=== PATIENT | male | born 1995 | race Caucasian/White ===

== ENCOUNTER 2019-09-15 07:31 | Inpatient (IN) ==
[2019-09-15] MEDS ORDERED: ROCEPHIN 1 GM in NS 50 ML IV ONE (07:35)
[2019-09-15] MEDS ORDERED: NS 1,000 ML IV ONE (07:35)
[2019-09-15] MEDS ORDERED: ZITHROMAX 500 MG/NS 500 MG/250 ML IVPB IV ONE (07:35)
[2019-09-15] MEDS ORDERED: DUONEB (A & A) INH ONE (07:36)
--- NOTE | 2019-09-15 07:45 | PROVIDER DOCUMENTATION ---
HPI-Respiratory General - General Stated Complaint: SOB Time Seen by Provider: 09/15/19 07:31 Source: patient, EMS Allergies/Adverse Reactions: Patient Allergies Allergy/AdvReac Type Severity Reaction Status Date / Time venom-wasp Allergy ANAPHYLAXIS Verified 09/15/19 08:25 Home Medications: Home Medication List Medication Instructions Recorded Confirmed Last Taken Type Lamotrigine [Lamictal] 100 mg PO BID 04/21/16 09/15/19 04/21/16 13:00 History Oxcarbazepine [Trileptal] 2.5 tab PO DAILY 04/21/16 09/15/19 04/21/16 13:00 History Topiramate [Topamax] 100 mg PO BID 04/21/16 09/15/19 04/21/16 13:00 History Azithromycin 1 tab PO DAILY 09/15/19 09/15/19 Unknown History Benzonatate 1 cap PO TID 09/15/19 09/15/19 Unknown History Citalopram [Celexa] 20 mg PO DAILY 09/15/19 09/15/19 Unknown History Prednisone 3 tab PO DAILY 09/15/19 09/15/19 Unknown History - History of Present Illness-Resp Nature of Presenting Problem: Patient has had URI symptoms for about a week, diagnosed with PNE at [facility] ER a few days ago, this am stats couldn't breathe. Still has productive cough, this morning, there was pink sputum. First Responders report patient had RA sats 91% at home, so he was placed on 100% NRB. EMS reports they switched him to O2 3L by NC and gave neb treatment en route. Sats improved with neb treatment. C/O right sided sharp chest pain, with deep breath and cough. Quality of Pain: reports: sharp Severity in ED: reports: moderate Onset/Duration: reports: last week Timing: reports: still present, constant, changing over time, getting worse Context: reports: recent URI. denies: recent foreign travel Exposure: reports: illness exposure Cough Quality/Degree: reports: moderate, productive cough, blood streaked sputum Episode Frequency: no prior episodes Current Respiratory Medication Therapy: Initiated none Modifying Factors: improves with: oxygen, sitting upright. worse with: exer tion, coughing, lying down Associated Symptoms: reports: chest pain/soreness, cough, fever/chills, flu-like symptoms, heart racing, hurts to breathe, nasal congestion, shortness of breath , short of breath, sweaty, wheezing Similar Symptoms Previously?: No Recently seen or treated by another doctor?: Yes Review of Systems - Adult - REVIEW OF SYSTEMS - ADULT Constitutional: reports: no symptoms reported Eyes: reports: no symptoms reported Ears, Nose, Mouth & Throat: reports: no symptoms reported Cardiovascular: reports: no symptoms reported Respiratory: reports: no symptoms reported Gastrointestinal: reports: no symptoms reported Genitourinary: reports: no symptoms reported Musculoskeletal: reports: no symptoms reported Integumentary: reports: no symptoms reported Neurological: reports: no symptoms reported Psychiatric: reports: no symptoms reported Endocrine: reports: no symptoms reported Hematologic/Lymphatic: reports: no symptoms reported Allergic/Immunologic: reports: no symptoms reported All Other Systems: Reviewed and Negative Past History - Adult - PAST MEDICAL HISTORY-ADULT Review of Records: reports: Old Records Reviewed, Nursing Assessment Review, Medications Reviewed, Social history reviewed & non-contributory. Major Childhood Illnesses: reports: denies history Cardiovascular: reports: denies history Respiratory: reports: denies history Gastrointestinal: reports: denies history Obstetrical/Gynecological: reports: denies history Genitourinary: reports: denies history Musculoskeletal: reports: denies history Neurological: reports: Seizures/Epilepsy Endocrine/Immune: reports: denies history Other Conditions: reports: denies history - PRIOR SURGERIES/PROCEDURES Surgical/Procedure History: reports: reviewed, not pertinent - IMMUNIZATION STATUS Childhood Immunizations: UTD Flu Vaccine: NUTD - FAMILY HISTORY Family History: reviewed, not pertinent - SOCIAL HISTORY Smoking: cigarettes, greater than 1 pack/day Provider spent 3-5 mins advising pt. on dangers of tobacco.: Discussed manners to quit use, and f/u contacts for add'l counseling. Substance Use: none/never Alcohol Use Frequency: occasionally Living Situation: family Physical Exam-General - PHYSICAL EXAM-ADULT Initial Vital Signs Reviewed: Yes (VSSAF, tachycardic) - CONSTITUTIONAL General Appearance: appears well, alert, no apparent distress - EYES Eyes: PERRL/EOMI, pink conjunctivae - HEAD, EARS, NOSE, MOUTH & THROAT HENMT: normocephalic/atraumatic, moist mucous membranes, normal ENT inspection - NECK Neck: full range of motion, supple, normal inspection - RESPIRATORY Respiratory: chest non-tender, no pleuratic chest pain, no respiratory distress, decreased breath sounds, rhonchi, wheezing, increased rate - CARDIOVASCULAR Cardiovascular: normal peripheral pulses, regular rate, rhythm, no edema, no gallop, no JVD, no murmur, tachycardia - GASTROINTESTINAL (ABDOMEN) Abdominal Exam: non tender, soft, no pulsatile mass - LYMPHATIC Lymphatic: no adenopathy - MUSCULOSKELETAL Back Exam: normal inspection, no CVA tenderness. negative: decreased range of motion Extremity: normal range of motion, non-tender, normal inspection, no pedal edema , normal capillary refill - SKIN Integumentary: normal color, normal turgor, warm/dry - NEUROLOGIC Neurologic: piping design specialist II-XII nml as tested, grossly normal, no motor/sensory deficits - PSYCHIATRIC Psych/Mental Status: normal mood/affect, normal thought content, normal thought process, oriented x 3 Progress - PLAN OF CARE/RESULTS Progress/Plan/Lab Results: Vital Signs - 8 hr 09/15/19 07:38 09/15/19 08:03 09/15/19 08:17 Temperature 98.1 F 97.6 F Pulse Rate 121 H 111 H 109 H Respiratory Rate 27 H 28 H 27 H Blood Pressure 130/91 144/81 O2 Sat by Pulse Oximetry 96 98 98 09/15/19 07:40 Influenza Screen - Final Nasopharyngeal 09/15/19 07:40 Group A Strep Rapid Antigen - Final Throat Laboratory Results - last 24 hr 09/15/19 09/15/19 09/15/19 07:40 07:40 07:40 WBC 17.89 H RBC 4.94 Hgb 14.2 Hct 42.6 MCV 86.2 MCH 28.7 MCHC 33.3 RDW Std Deviation 13.7 Plt Count 425 H MPV 9.8 Immature Gran % (Auto) 1.3 H Neut % (Auto) 74.9 Lymph % (Auto) 14.1 L [place] % (Auto) 9.3 Eos % (Auto) 0.2 Baso % (Auto) 0.2 Immature Gran # (Auto) 0.23 H Neut # (Auto) 13.40 H Lymph # (Auto) 2.53 [place] # (Auto) 1.66 H Eos # (Auto) 0.04 Baso # (Auto) 0.03 PT 13.2 INR 0.99 PTT (Actin FS) 27.8 Specimen Type Sample Site pH pCO2 pO2 HCO3 Base Excess Oxyhemoglobin ABG O2 Sat (Calculated) ABG O2 Saturation ABG Carboxyhemoglobin ABG Methemoglobin Taco Test A-a O2 Difference Total Hemoglobin Lactate Liter Flow Blood Gas Modality FiO2 % Sodium 139 Potassium 3.7 Chloride 99 Carbon Dioxide 21 L Anion Gap 19 BUN 11 Creatinine 1.1 Estimated GFR/1.73 m2 > 60 BUN/Creatinine Ratio 10 Glucose 110 H Calculated Osmolality 278 Calcium 9.0 Magnesium 1.9 Total Bilirubin 0.23 AST 13 ALT 18 Alkaline Phosphatase 65 Creatine Kinase 59 Troponin T High Sens [id number]-Gqwapfvltbl Pept Total Protein 7.3 Albumin 4.5 Globulin 2.8 Albumin/Globulin Ratio 1.6 Urine Source Urine Color Urine Turbidity Urine pH Ur Specific [place] Urine Protein Ur Glucose (Stick) Ur Ketones (Stick) Urine Blood Urine Nitrite Urine Bilirubin Urobilinogen Dipstick Urine Leukocytes Urine WBC (Auto) Urine RBC (Auto) U Epithel Cells (Auto) Urine Bacteria (Auto) 09/15/19 09/15/19 09/15/19 07:40 07:40 08:00 WBC RBC Hgb Hct MCV MCH MCHC RDW Std Deviation Plt Count MPV Immature Gran % (Auto) Neut % (Auto) Lymph % (Auto) [place] % (Auto) Eos % (Auto) Baso % (Auto) Immature Gran # (Auto) Neut # (Auto) Lymph # (Auto) [place] # (Auto) Eos # (Auto) Baso # (Auto) PT INR PTT (Actin FS) Specimen Type ARTERIAL Sample Site R RADIAL pH 7.34 L pCO2 35 pO2 79 HCO3 20.0 Base Excess -6.1 L Oxyhemoglobin 92.3 L ABG O2 Sat (Calculated) 18.2 ABG O2 Saturation 97.4 ABG Carboxyhemoglobin 5.20 H* ABG Methemoglobin 0.1 Taco Test YES A-a O2 Difference 77.0 Total Hemoglobin 14.0 Lactate 1.70 Liter Flow 2.0 Blood Gas Modality CANNULA FiO2 % 28.0 Sodium Potassium Chloride Carbon Dioxide Anion Gap BUN Creatinine Estimated GFR/1.73 m2 BUN/Creatinine Ratio Glucose Calculated Osmolality Calcium Magnesium Total Bilirubin AST ALT Alkaline Phosphatase Creatine Kinase Troponin T High Sens < 6 [id number]-Y-Jrlvjmnnwha Pept 104 H Total Protein Albumin Globulin Albumin/Globulin Ratio Urine Source Urine Color Urine Turbidity Urine pH Ur Specific [place] Urine Protein Ur Glucose (Stick) Ur Ketones (Stick) Urine Blood Urine Nitrite Urine Bilirubin Urobilinogen Dipstick Urine Leukocytes Urine WBC (Auto) Urine RBC (Auto) U Epithel Cells (Auto) Urine Bacteria (Auto) 09/15/19 09:04 WBC RBC Hgb Hct MCV MCH MCHC RDW Std Deviation Plt Count MPV Immature Gran % (Auto) Neut % (Auto) Lymph % (Auto) [place] % (Auto) Eos % (Auto) Baso % (Auto) Immature Gran # (Auto) Neut # (Auto) Lymph # (Auto) [place] # (Auto) Eos # (Auto) Baso # (Auto) PT INR PTT (Actin FS) Specimen Type Sample Site pH pCO2 pO2 HCO3 Base Excess Oxyhemoglobin ABG O2 Sat (Calculated) ABG O2 Saturation ABG Carboxyhemoglobin ABG Methemoglobin [place]aco Test A-a O2 Difference Total Hemoglobin Lactate Liter Flow Blood Gas Modality FiO2 % Sodium Potassium Chloride Carbon Dioxide Anion Gap BUN Creatinine Estimated GFR/1.73 m2 BUN/Creatinine Ratio Glucose Calculated Osmolality Calcium Magnesium Total Bilirubin AST ALT Alkaline Phosphatase Creatine Kinase Troponin T High Sens Ftp-U-Wljhurbcebv Pept Total Protein Albumin Globulin Albumin/Globulin Ratio Urine Source CLEAN CATCH Urine Color YELLOW Urine Turbidity CLEAR Urine pH 5.5 Ur Specific [place] 1.011 Urine Protein TRACE A Ur Glucose (Stick) NEGATIVE Ur Ketones (Stick) NEGATIVE Urine Blood NEGATIVE Urine Nitrite NEGATIVE Urine Bilirubin NEGATIVE Urobilinogen Dipstick NORMAL Urine Leukocytes NEGATIVE Urine WBC (Auto) <10 Urine RBC (Auto) <10 U Epithel Cells (Auto) <10 Urine Bacteria (Auto) NEGATIVE Orders Category Date Time Status Cardiac Monitoring DIRECTED Care 09/15/19 07:34 Active IV Insertion ORDERED Care 09/15/19 07:34 Completed Nursing- Obtain EKG once Care 09/15/19 07:35 Active CHEST-2 VIEWS [RAD] Stat Exams 09/15/19 07:34 Completed ABG [RESP] Routine Lab 09/15/19 08:00 Completed BLOOD CULTURE [BLDCUL] Stat Lab 09/15/19 07:40 Received CBC WITH DIFF [HEME] Stat Lab 09/15/19 07:40 Completed CK PROFILE [SP CHEM] Stat Lab 09/15/19 07:40 Completed COMPREHENSIVE METABOLIC PANEL [CHEM] Stat Lab 09/15/19 07:40 Completed D-DIMER [COAG] Stat Lab 09/15/19 07:35 Ordered DIRECT STREP Stat Lab 09/15/19 07:40 Completed INFLUENZA SCREEN A/B Stat Lab 09/15/19 07:40 Completed LACTATE, PLASMA [CHEM] Lab 09/15/19 10:45 Uncollected LACTATE, PLASMA [CHEM] Lab 09/15/19 13:45 Uncollected LACTATE, PLASMA [CHEM] Q3H Lab 09/15/19 07:40 Ordered MAGNESIUM [CHEM] Stat Lab 09/15/19 07:40 Completed PRO B-NATRIURETIC PEPTIDE Stat Lab 09/15/19 07:40 Completed PROTIME WITH INR [COAG] Stat Lab 09/15/19 07:40 Completed PTT [COAG] Stat Lab 09/15/19 07:40 Completed SPUTUM CULTURE WITH GRAM STAIN [RM] Stat Lab 09/15/19 07:34 Uncollected TROPONIN T HIGH SENSITIVITY Stat Lab 09/15/19 07:40 Completed URINALYSIS W/POSS RFLX CULT [URINALYSIS] Stat Lab 09/15/19 09:04 Completed 0.9% Sodium Chloride Inj [Ns] 1,000 ml Med 09/15/19 07:35 Discontinued IV 999 mls/hr Albuterol 2.5MG/Ipratrop 0.5MG [Duoneb (A & A)] Med 09/15/19 07:36 Discontinued 3 ml INH NOW ONE Azithromycin 500 mg/Ns [Zithromax 500 mg/Ns] Med 09/15/19 07:35 Discontinued 500 mg in 250 ml IV NOW CefTRIAXONE [Rocephin] 1 gm Med 09/15/19 07:35 Discontinued 0.9% Sodium Chloride Inj [Ns] 50 ml IV NOW Aerosol Treatments Routine Oth 09/15/19 07:36 Completed Aerosol Treatments Stat Oth 09/15/19 07:36 Completed Oxygen Device Stat Oth 09/15/19 07:34 Completed EKG [EKG] Stat Ther 09/15/19 07:35 Ordered Result Diagrams: 09/15/19 07:40 09/15/19 07:40 - REASSESSMENT Reassessment #1 Time Reassessed: 10:00 Status: improving (Better after IVF bolus, duoneb, given IV Rocephin/zithromax, and he has failed outpatient abx treatment with z-pack. Patient meets criteria for sepsis, but is not with severe sepsis or septic shock as lactat is negative and there is no hypotension) - EKG 1 Time of EKG reading by physician:: 07:43 EKG Read and Signed by:: Montez Coleman EKG Interpretation (*Must complete 3 of following elements*): Abnormal Rate: 122 Rhythm: sinus tachycardia Mcclellan: normal QRS: LVH, other (RSR V1 or V2, early transition, high voltage) ME Interval: normal ST Wave: non-specific ST changes - XRAY 1 XRAY Study: Chest Impression: Abnormal, See EMR Report ( EXAM: CHEST-2 VIEWS HISTORY: pneumonia TECHNIQUE: Two views COMPARISON: 04/21/2016 FINDINGS: Poor inspiratory effort. There are infiltrates and atelectasis in the right lower lobe. No cardiomegaly. No pulmonary edema. No left pleural effusion. Trace right pleural fluid. IMPRESSION: Right lower lobe infiltrates and atelectasis Electronically signed by Chadd Tovar 09/15/2019 9:06 AM 09/15/19905 Interpreting Physician: Chadd Tovar MD Dictated Date/Time: 09/15/19905 cc: Montez Coleman MD; None,PCP) - CONSULTS/PCP/HOSPITALIST Notification #1 *Consult/PCP/Hospitalist*: Hospitalist RICHARD paged at 1000 Time Discussed: 10:13 (RICHARD Portillo states to admit to [facility]) Consult Disposition: Will see in ED, Admit Departure - Departure Date of Disposition Decision: 09/15/19 Time of Disposition Decision: 10:03 DIAGNOSIS: Sepsis due to pneumonia, Failure of outpatient treatment Right lower lobe pneumonia Qualifiers: Pneumonia type: due to unspecified organism Qualified Code(s): J18.1 - Lobar pneumonia, unspecified organism Disposition: ADMITTED INPATIENT 09 Certified Medical Emergency: Emergent Condition: Fair Referrals and Follow-Ups: None,PCP [Primary Care Provider] - - Critical Care Note This patient required my direct & personal management of CC.: No Attestation - Physician/ PEDRO LUIS Attestation Patient care was provided by Advanced Practice Provider:: No The physician spent face to face time with patient:: Yes Advanced Practice Provider documentation review:: Supervising physician onsite and consulted in the evaluation and care of this patient. The physician did have a face to face encounter with the patient.
[2019-09-15 08:11] LABS: ALLEN TEST YES; BE -6.1 mmoll (-3.0-3.0); BLOOD TYPE ARTERIAL; METHB 0.1 % (0.0-1.5); O2(CT) 18.2 mL/dL (15.0-23.0); O2HB 92.3 % (95.0-99.0); PCO2(98.6) 35 mmHg (35-45); PO2(98.6) 79 mmHg (60-100); SAMPLE BLOOD; SAO2 97.4 % (95.0-100.0); pH(98.6) 7.34 (7.35-7.45)
[2019-09-15 08:12] LABS: MODALITY CANNULA
--- NOTE | 2019-09-15 09:09 | Diag Imaging Result Doc PS360 ---
EXAM: CHEST-2 VIEWS HISTORY: pneumonia TECHNIQUE: Two views COMPARISON: 04/21/2016 FINDINGS: Poor inspiratory effort. There are infiltrates and atelectasis in the right lower lobe. No cardiomegaly. No pulmonary edema. No left pleural effusion. Trace right pleural fluid. IMPRESSION: Right lower lobe infiltrates and atelectasis Electronically signed by Chadd Tovar 09/15/2019 9:06 AM
[2019-09-15 09:12] LABS: URINE SOURCE CLEAN CATCH
[2019-09-15 09:16] LABS: BILIRUBIN URINE NEGATIVE (NEGATIVE); BLOOD URINE NEGATIVE (NEGATIVE); COLOR YELLOW; GLUCOSE URINE NEGATIVE (NEGATIVE); KETONE URINE NEGATIVE (NEGATIVE); LEUKOCYTES URINE NEGATIVE (NEGATIVE); NITRITE URINE NEGATIVE (NEGATIVE); PH URINE 5.5; PROTEIN URINE TRACE mg/dL (NEGATIVE); SP GRAVITY URINE 1.011; TURBIDITY URINE CLEAR (CLEAR); UROBILINOGEN URINE NORMAL (NORMAL)
[2019-09-15 09:17] LABS: UR EPITHELIAL CELLS <10 /HPF (<10); URINE BACTERIA NEGATIVE /HPF; URINE RBC <10 /HPF (<10); URINE WBC <10 /HPF (<10)
[2019-09-15 09:40] LABS: BASO# 0.03 X1000 (0.0-0.2); BASO% 0.2 % (0.0-0.8); EOS# 0.04 X1000 (0.0-0.7); EOS% 0.2 % (0.0-10.0); HEMATOCRIT 42.6 % (42.0-52.0); HEMOGLOBIN 14.2 g/dL (14.0-18.0); IMM GRAN# 0.23 X1000 (0.0-0.04); IMM GRAN% 1.3 % (0.0-0.5); LYMPH# 2.53 X1000 (1.2-3.4); LYMPH% 14.1 % (20.5-51.1); MCH 28.7 PG (27-31); MCHC 33.3 g/dL (33-37); MCV 86.2 FL (81-99); MONO# 1.66 X1000 (0.11-0.59); MONO% 9.3 % (1.7-9.3); MPV 9.8 FL (7.4-10.4); NEUT% 74.9 % (42.2-75.2); PLT 425 X1000 (130-400); RBC 4.94 XMIL (4.7-6.1); RDW 13.7 % (11.5-14.5); WBC 17.89 X1000 (4.8-10.8)
[2019-09-15 09:49] LABS: INR 0.99; PROTIME 13.2 Seconds (11.0-16.0); PTT 27.8 Seconds (22.3-41.8)
[2019-09-15 09:59] LABS: AGAP 19; ALB/GLOB RATIO 1.6; ALBUMIN 4.5 g/dL (3.5-5.0); ALKALINE PHOSPHATASE 65 U/L (32-122); BUN 11 mg/dL (8-22); CHLORIDE 99 mmol/L (98-107); CK PROFILE 59 U/L (24-204); COSMO 278; CREATININE 1.1 mg/dL (0.7-1.2); ESTIMATED GFR > 60; GLUCOSE 110 mg/dL (70-104); GOT 13 U/L (10-34); GPT 18 U/L (10-44); MAGNESIUM 1.9 mg/dL (1.5-2.7); POTASSIUM 3.7 mmol/L (3.5-5.1); SODIUM 139 mmol/L (136-145); TCO2 21 mmol/L (25-35); TOTAL BILIRUBIN 0.23 mg/dL (0.20-1.00); TOTAL PROTEIN 7.3 g/dL (6.3-8.3)
[2019-09-15] MEDS ORDERED: ZOFRAN IV PRN (10:20)
[2019-09-15] MEDS: DUONEB (A & A) INH SCH ×4 (10:51→23:09)
--- NOTE | 2019-09-15 11:32 | HISTORY AND PHYSICAL ---
PRIMARY CARE PHYSICIAN: None. CHIEF COMPLAINT: Fever, chills, body aches, shortness of breath, productive cough after being diagnosed with the pneumonia about 5 days ago, and has continued antibiotics, but no improvement in symptoms. HISTORY OF PRESENTING ILLNESS: This is a 24-year-old male, who presents to [facility] stating that he was diagnosed with pneumonia about 5 days ago at [facility], placed on p.o. antibiotics. Has been taking those antibiotics as prescribed, but continued to have fever, chills, body aches, shortness of breath, productive cough. When EMS arrived, he was satting 91% on room air. They placed him on O2 at 2 L via nasal cannula and gave him a breathing treatment en route. When he arrived, he was satting 96% on room air. His pulse was 121 respirations 27. His white count was noted to be 17.89, but it is noted that he has been taking some prednisone also, and his chest x-ray showed a right lower lobe infiltrate and atelectasis. So, he will be admitted for further evaluation and treatment for failed outpatient treatment. PAST MEDICAL HISTORY: Depression and seizures. PAST SURGICAL HISTORY: None. FAMILY HISTORY: Reviewed and noncontributory. SOCIAL HISTORY: Currently lives with . Smokes a half a pack of cigarettes a day and has done so for the past 10+ years. Drinks 12 beers a week and denied any illicit drug use. ALLERGIES: Venom and wasps. HOME MEDICATIONS: We will hold his azithromycin 250 mg p.o. daily. We will continue the following: Benzonatate 100 mg p.o. t.i.d., Celexa 20 mg p.o. daily, lamotrigine 100 mg p.o. b.i.d., oxcarbazepine 150 mg 2-1/2 tablets p.o. daily, prednisone 20 mg three tablets daily and topiramate 100 mg p.o. b.i.d. LABORATORY DATA: Showed a white blood cell count of 17.89, hemoglobin 14.2, hematocrit 42.6, platelets 425. PT and INR of 13.2 and 0.99. ABG with a pH of 7.34, pCO2 35, PO2 79, bicarbonate 20 and this was on 2 L via nasal cannula. Sodium 139, potassium 3.7, chloride 99, CO2 21. BUN of 11, creatinine 1.1, glucose 110, magnesium of 1.9, creatine kinase 59. Troponin T high sensitivity less than 6. ProBNP of 104. Urinalysis was negative. IMAGING STUDIES: Chest x-ray showed a right lower lobe infiltrate and atelectasis. REVIEW OF SYSTEMS: He has been positive for fever, chills, body aches, productive cough, shortness of breath. Denied any abdominal pain, constipation, diarrhea, burning or hurting with urination. PHYSICAL EXAMINATION: VITAL SIGNS: On arrival he had a temperature of 98.1 degrees, pulse 121, respirations 27, blood pressure 130/91, satting 96% on room air. GENERAL: This is a 24-year-old male, who is lying in the bed and answers questions appropriately. HENT: Normocephalic, atraumatic. Normal ENT inspection. Oropharynx and nares are clear. EYES: Pupils are equal, round, reactive to light and accommodation. Extraocular movements are intact. NECK: Normal inspection, normal range of motion. LUNGS: Clear on the left side, and on the right side was decreased breath sounds. When he arrived, he did have some rhonchi and wheezing noted, but none noted at this time. Equal lung expansion. Chest wall movement noted. O2 via nasal cannula currently in use. HEART: Regular rate and rhythm. No murmurs, rubs, or gallops. ABDOMEN: Soft, nontender, nondistended. Bowel sounds are present x4 quadrants. MUSCULOSKELETAL: He had 5/5 strength x4 extremities. NEUROLOGICAL: The cranial nerves 2-12 appear grossly intact. ASSESSMENT: 1. Sepsis. 2. Right lower lobe pneumonia with failed outpatient treatment. 3. Leukocytosis. 4. Tobacco abuse. 5. Ethanol abuse. PLAN: He will be admitted to the medical unit, placed on telemetry. O2 per protocol. Regular diet. Incentive spirometry. We will do serial lactates. Place on normal saline at 50 mL an hour, Rocephin 1 gram IV q. 24 hours, azithromycin 500 IV q. 24 hours; both first doses of those were given in the emergency room. He will have a nicotine patch 21 mg transdermally. We will continue home medications as previously identified. Further orders after seen by attending. Dictated by RICHARD Bennett for Kyree Stuart MD Addendum: Patient seen and examined by myself. Agree with RICHARD note. It reflects my assessment and plan. Patient is admitted to hospital for pneumonia that failed outpatient treatment. Will start broad spectrum antibiotics and will go from there. cc: RICHARD Bennett MD [facility]
[2019-09-15] MEDS: NS 1,000 ML IV SCH (13:46)
[2019-09-15] MEDS: TESSALON PO SCH ×3 (13:48→22:32)
[2019-09-15] MEDS: NICODERM PATCH TD SCH (13:48)
--- NOTE | 2019-09-15 19:13 | EKG Report ---
Test Performed on : 09/15/2019 07:42:23 AM Test Reason : sob Blood Pressure : / mmHG Vent. Rate : 122 BPM Atrial Rate : 122 BPM P-R Int : 144 ms QRS Dur : 084 ms QT Int : 300 ms P-R-T Axes : 052 058 -24 degrees QTc Int : 427 ms Sinus tachycardia. Possible Left atrial enlargement ST & T wave abnormality, consider inferior ischemia ST & T wave abnormality, consider anterolateral ischemia Abnormal ECG No previous ECGs available Unconfirmed Result
[2019-09-15] MEDS: TOPAMAX PO SCH ×2 (19:45→22:32)
[2019-09-15] MEDS: LAMICTAL PO SCH ×2 (19:45→22:32)
[2019-09-16] MEDS: DUONEB (A & A) INH SCH ×6 (03:26→23:08)
[2019-09-16] MEDS ORDERED: ROCEPHIN 1 GM in NS 50 ML IV SCH (08:00)
[2019-09-16 08:22] LABS: AGAP 12; BUN 9 mg/dL (8-22); CALCIUM 9.1 mg/dL (8.8-10.2); CHLORIDE 94 mmol/L (98-107); COSMO 264; CREATININE 1.1 mg/dL (0.7-1.2); ESTIMATED GFR > 60; GLUCOSE 111 mg/dL (70-104); POTASSIUM 4.8 mmol/L (3.5-5.1); SODIUM 132 mmol/L (136-145); TCO2 26 mmol/L (25-35)
[2019-09-16 08:28] LABS: BASO# 0.04 X1000 (0.0-0.2); BASO% 0.2 % (0.0-0.8); EOS# 0.18 X1000 (0.0-0.7); EOS% 0.8 % (0.0-10.0); HEMATOCRIT 41.8 % (42.0-52.0); HEMOGLOBIN 13.9 g/dL (14.0-18.0); IMM GRAN% 0.9 % (0.0-0.5); LYMPH# 2.19 X1000 (1.2-3.4); MCH 29.1 PG (27-31); MCHC 33.3 g/dL (33-37); MCV 87.4 FL (81-99); MONO% 14.6 % (1.7-9.3); MPV 9.5 FL (7.4-10.4); NEUT% 73.5 % (42.2-75.2); PLT 381 X1000 (130-400); RBC 4.78 XMIL (4.7-6.1); RDW 13.7 % (11.5-14.5); WBC 21.91 X1000 (4.8-10.8)
[2019-09-16 09:22] LABS: LYMPHS 10 % (21-51); MONO 12 % (1-9); SEGS 78 % (42-75)
[2019-09-16] MEDS ORDERED: VANCOMYCIN IV PER PHARMACY MISC SCH (09:30)
[2019-09-16] MEDS ORDERED: ZOSYN 3.375 GM in NS 50 ML IV SCH (09:30)
[2019-09-16] MEDS: VANCOMYCIN 2,000 MG in NS 500 ML IV SCH ×3 (10:05→22:50)
[2019-09-16] MEDS: NS 1,000 ML IV SCH (10:05)
[2019-09-16] MEDS: TRILEPTAL PO SCH (10:06)
[2019-09-16] MEDS: TESSALON PO SCH ×3 (10:11→17:14)
[2019-09-16] MEDS: PREDNISONE PO SCH (10:11)
[2019-09-16] MEDS: NICODERM PATCH TD SCH (10:12)
[2019-09-16] MEDS: CELEXA PO SCH (10:12)
[2019-09-16] MEDS: TOPAMAX PO SCH ×2 (10:12→20:24)
[2019-09-16] MEDS: LAMICTAL PO SCH ×2 (10:12→20:24)
[2019-09-16] MEDS ORDERED: ZITHROMAX 500 MG/NS 500 MG/250 ML IVPB IV SCH (10:30)
--- NOTE | 2019-09-16 10:43 | PROGRESS NOTE ---
DATE: 09/16/2019 SUBJECTIVE: The patient reports feeling the same, although more body aches. OBJECTIVE: Vital Signs: Temperature 99 degrees, heart rate 121, respiratory rate 16, blood pressure 129/79, O2 saturation 95% on 2 L nasal cannula. General: This is a 24-year-old, male, lying in bed in no acute distress. Cardiovascular: S1, S2 heard. No murmurs, gallops, or rubs. Regular rate and rhythm. Respiratory: Coarse breath sounds. Minimal wheezing noted in both pulmonary bases. The patient is not using any accessory muscles or having work of breathing. Abdomen: Soft. Nontender to palpation. Bowel sounds present. No organomegaly. Extremities: No clubbing, cyanosis, or edema. Peripheral pulses present in both legs. Neurological: The patient is alert and oriented x3. Moves all 4 extremities. LABORATORY DATA: White cell count 21.91, hemoglobin 13.9, hematocrit 41.8, platelets 381,000. BMP reveals sodium 132. ASSESSMENT AND PLAN: 1. Acute respiratory failure secondary to right lower lobe pneumonia. The patient has failed outpatient treatment. He has been placed on vancomycin and azithromycin. Unfortunately, white cell count continues to get worse, and he is still feeling general malaise. In this case, I am going to do a CT scan of the thorax to see there is any worsening pneumonia, and we are going to change antibiotics to broad-spectrum antibiotics, in this case vancomycin and Zosyn. Will stop ceftriaxone and azithromycin. 2. Tobacco abuse. Patient advised to stop smoking. 3. Ethanol abuse. Patient advised to avoid alcohol. cc: Kyree Sturat MD
[2019-09-16] MEDS ORDERED: SOLU-MEDROL IV ONE (11:12)
[2019-09-16] MEDS: BENADRYL IV PRN (11:44)
[2019-09-16] MEDS: MAXIPIME 1 GM in NS 50 ML IV SCH (11:45)
[2019-09-16] MEDS: MORPHINE IV PRN ×2 (12:29→17:12)
--- NOTE | 2019-09-16 17:23 | EKG Report ---
Test Performed on : 09/16/2019 12:12:36 PM Test Reason : chest pain, SOB Blood Pressure : / mmHG Vent. Rate : 128 BPM Atrial Rate : 128 BPM P-R Int : 114 ms QRS Dur : 076 ms QT Int : 298 ms P-R-T Axes : 043 040 041 degrees QTc Int : 435 ms Sinus tachycardia. T wave abnormality, consider lateral ischemia Abnormal ECG When compared with ECG of 15-SEP-2019 07:42, (Unconfirmed) Nonspecific T wave abnormality has replaced inverted T waves in Inferior leads Confirmed by Mariann Goldstein MD ([id number]) on 09/18/2019 7:40:02 AM
[2019-09-17] MEDS: MORPHINE IV PRN ×4 (02:36→20:37)
[2019-09-17] MEDS: DUONEB (A & A) INH SCH ×6 (03:39→22:55)
[2019-09-17] MEDS: NS 1,000 ML IV SCH (05:14)
[2019-09-17] MEDS: MAXIPIME 1 GM in NS 50 ML IV SCH ×2 (05:15→18:18)
--- NOTE | 2019-09-17 08:58 | Diag Imaging Result Doc PS360 ---
EXAM: CT THORAX W/CONTRAST INDICATION: worsening pneumonia TECHNIQUE: This exam was performed using automated exposure control, adjustment of mA or kV according to patient size, and/or use of iterative reconstruction technique. COMPARISON: None. FINDINGS: There is a moderate to large size right pleural fluid collection that appears to be partially loculated. There is complete collapse of the right lower lobe and there is milder atelectasis involving the right middle lobe and dependent portion of the right upper lobe. There is probably superimposed pneumonia associated with the atelectasis. There is peribronchial edema associated with the collapsed right lower lobe. There is trace effusion at the left lung base and there is minimal dependent atelectasis on the left. The left lung is clear, otherwise. There is no cardiomegaly. There is no evidence of significant mediastinal or hilar lymphadenopathy. Limited views of the upper abdomen are essentially unremarkable. IMPRESSION: 1.Partially loculated moderate to large sized right pleural effusion with significant atelectasis including complete collapse of the right lower lobe and likely superimposed pneumonia. 2.Trace left effusion and minimal dependent atelectasis on the left. Electronically signed by Jaden Sam 09/17/2019 8:56 AM
[2019-09-17] MEDS: TESSALON PO SCH ×3 (09:13→18:18)
[2019-09-17] MEDS: NICODERM PATCH TD SCH (09:13)
[2019-09-17] MEDS: PREDNISONE PO SCH (09:14)
[2019-09-17] MEDS: LAMICTAL PO SCH ×2 (09:14→20:37)
[2019-09-17] MEDS: TOPAMAX PO SCH ×2 (09:14→20:37)
[2019-09-17] MEDS: CELEXA PO SCH (09:14)
[2019-09-17] MEDS: TRILEPTAL PO SCH (09:14)
[2019-09-17] MEDS: VANCOMYCIN 2,000 MG in NS 500 ML IV SCH ×2 (09:23→22:30)
[2019-09-17 10:52] LABS: BASO# 0.02 X1000 (0.0-0.2); BASO% 0.1 % (0.0-0.8); EOS# 0.11 X1000 (0.0-0.7); EOS% 0.6 % (0.0-10.0); HEMATOCRIT 40.8 % (42.0-52.0); HEMOGLOBIN 13.4 g/dL (14.0-18.0); IMM GRAN# 0.11 X1000 (0.0-0.04); IMM GRAN% 0.6 % (0.0-0.5); LYMPH# 1.74 X1000 (1.2-3.4); LYMPH% 8.9 % (20.5-51.1); MCH 28.7 PG (27-31); MCHC 32.8 g/dL (33-37); MCV 87.4 FL (81-99); MONO# 2.24 X1000 (0.11-0.59); MONO% 11.4 % (1.7-9.3); MPV 9.5 FL (7.4-10.4); NEUT# 15.43 X1000 (1.4-6.5); NEUT% 78.4 % (42.2-75.2); PLT 333 X1000 (130-400); RBC 4.67 XMIL (4.7-6.1); RDW 13.4 % (11.5-14.5); WBC 19.65 X1000 (4.8-10.8)
--- NOTE | 2019-09-17 12:19 | PROGRESS NOTE ---
DATE: 09/17/2019 SUBJECTIVE: Patient reports feeling a little bit better. Yesterday afternoon, he was complaining of more diaphoreses and general malaise and chills. OBJECTIVE: Vital Signs: Temperature 98.0 degrees, heart rate 97, respiratory rate 14, blood pressure 131/76, O2 saturation 98% on 3 L nasal cannula. General Examination: This is a 24-year- old, male, lying in bed, in no acute distress. Cardiovascular Examination: S1 and S2 heard. No murmurs, gallops, or rubs. Regular rate and rhythm. Respiratory Examination: Decreased breath sounds in the right base. Patient is not using any accessory muscles or having work of breathing. Abdomen: Soft, nontender to palpation. Bowel sounds present. No organomegaly. Extremities: No clubbing, cyanosis, or edema. Peripheral pulses present in both legs. Neurological Examination: The patient is alert and oriented x3. Moves 4 extremities. Laboratory Data: White cell count 19.65, hemoglobin 13.4, hematocrit 40.0, platelets are 333,000. BMP is still pending. ASSESSMENT AND PLAN: 1. Acute respiratory failure secondary to right lower lobe pneumonia. Because this patient's white cell count continues to get worse and also worsening clinical status, I decided to order a CT of the chest which basically showed partially loculated moderate to large size right pleural effusion with significant atelectasis including complete collapse of the right lower lobe and likely superimposed pneumonia. In that particular case, we are going to consult pulmonary and we will go from there. We may need to place a chest tube or we can try to do a thoracentesis. We will see what Dr. Kyle has to say. The patient currently is on vancomycin on Zosyn. We will continue with the same management. 2. Tobacco abuse. Patient advised to stop smoking. He smokes half a pack of cigarettes per day since 10 years. He has been advised to quit. 3. Ethanol abuse. Aware. 4. Disposition. We will see what pulmonary has to say. cc: Kyree Stuart MD
[2019-09-17 12:20] LABS: AGAP 16; BUN 12 mg/dL (8-22); CALCIUM 9.2 mg/dL (8.8-10.2); CHLORIDE 98 mmol/L (98-107); COSMO 266; CREATININE 0.9 mg/dL (0.7-1.2); ESTIMATED GFR > 60; GLUCOSE 90 mg/dL (70-104); POTASSIUM 3.8 mmol/L (3.5-5.1); SODIUM 133 mmol/L (136-145); TCO2 19 mmol/L (25-35)
[2019-09-17 13:25] LABS: BASO# 0.02 X1000 (0.0-0.2); BASO% 0.1 % (0.0-0.8); EOS# 0.06 X1000 (0.0-0.7); EOS% 0.3 % (0.0-10.0); HEMATOCRIT 41.1 % (42.0-52.0); HEMOGLOBIN 13.4 g/dL (14.0-18.0); IMM GRAN# 0.12 X1000 (0.0-0.04); IMM GRAN% 0.6 % (0.0-0.5); LYMPH# 0.77 X1000 (1.2-3.4); LYMPH% 3.8 % (20.5-51.1); MCH 28.5 PG (27-31); MCHC 32.6 g/dL (33-37); MCV 87.3 FL (81-99); MONO# 1.06 X1000 (0.11-0.59); MONO% 5.2 % (1.7-9.3); MPV 9.5 FL (7.4-10.4); NEUT# 18.46 X1000 (1.4-6.5); PLT 358 X1000 (130-400); RBC 4.71 XMIL (4.7-6.1); RDW 13.4 % (11.5-14.5); WBC 20.49 X1000 (4.8-10.8)
[2019-09-17 13:33] LABS: AGAP 14; BUN 13 mg/dL (8-22); CALCIUM 9.2 mg/dL (8.8-10.2); CHLORIDE 97 mmol/L (98-107); COSMO 265; ESTIMATED GFR > 60; GLUCOSE 111 mg/dL (70-104); POTASSIUM 3.7 mmol/L (3.5-5.1); SODIUM 132 mmol/L (136-145); TCO2 21 mmol/L (25-35)
[2019-09-17 14:00] LABS: BANDS 4 % (0-1); LYMPHS 10 % (21-51); SEGS 86 % (42-75)
[2019-09-17] MEDS: BENADRYL IV PRN (22:35)
[2019-09-18] MEDS: DUONEB (A & A) INH SCH ×6 (05:32→23:25)
[2019-09-18] MEDS: MAXIPIME 1 GM in NS 50 ML IV SCH ×2 (05:48→18:31)
[2019-09-18] MEDS: NS 1,000 ML IV SCH (05:49)
--- NOTE | 2019-09-18 07:23 | PULMONOLOGY CONSULTATION ---
DATE: 09/17/2019 REQUESTING CLINICIAN: Dr. Jacinto. REASON FOR CONSULTATION: Pleural effusion. HISTORY OF PRESENT ILLNESS: Mr. Javed is a 24-year-old with ongoing tobacco use, daily alcohol use, history of seizure disorder, who had a several-day history of cough with purulent sputum production, possible fevers with nocturnal sweats. The patient went to [facility] Emergency Room and received a Z-Radames and prednisone. The patient's symptoms did not improve, so EMS was called. The patient had an oxygen saturation of 91% upon their arrival. He had significant sharp chest pain with blood-streaked sputum. He had significant leukocytosis upon presentation. Influenza screen was negative, and blood cultures are negative to date. Initial chest x-ray revealed infiltrate and atelectasis at the right base with trace effusion. Two days later he underwent a CT scan of the thorax, which reveals a moderate to large effusion, which appears to be loculated, along with consolidation in the right lower lobe and right middle lobe. No evidence of pulmonary emboli. PAST MEDICAL HISTORY/PROBLEM LIST: 1. Seizure disorder. The patient reports he will have seizures and will be poorly responsive for up to 24 to 48 hours. He is followed by a neurologist at [place]. 2. History of depression. SOCIAL HISTORY: The patient is disabled due to his seizure disorder. Frequent alcohol use. He has been smoking for many years. FAMILY HISTORY: Mother has no significant medical problems. His father is in fpc, and he is not sure of his medical history, but he did have difficulty with drug use. REVIEW OF SYSTEMS: Notable for cough, purulent sputum production, and bloody sputum production. Fevers, and nocturnal sweats. PHYSICAL EXAMINATION: General: Reveals a well-developed, well-nourished male resting comfortably and in no distress. Vital Signs: He has been afebrile during this hospitalization. Blood pressure 135/71, heart rate 91, respiratory rate 18, oxygen saturation 99% on 4 liters per nasal cannula. HEENT: Pupils are equal and reactive. Oropharynx appears clear. Neck: Supple. Chest: Reveals markedly diminished breath sounds on the right mid to the right base lung brown. Cardiac: S1-S2. Abdomen: Soft. Extremities: Without edema. LABORATORIES: White blood count 20,000, hemoglobin 13.4, platelet count 358,000 with a left shift and 4% bands. IMPRESSION: A 24-year-old with: 1. Pneumonia. 2. Loculated pleural effusion. 3. Hypoxemic respiratory failure. 4. Pleuritic chest pain. 5. Tobacco use/nicotine addiction. 6. Alcohol use. 7. Seizure disorder. DISCUSSION: A 24-year-old with problems outlined above. With his history, he had a pneumonia for several days before he had his initial evaluation. He is at risk for both community-acquired pneumonias, along anaerobic and aspiration pneumonias given his alcohol use and seizure disorder. He will need the pleural fluid sample to ensure that he does not have empyema. If he has empyema, he may require a thoracoscopy or a thoracotomy to adequately drain this right hemithorax. PLAN: 1. Continue current antibiotic regimen pending sampling of the right pleural fluid. 2. Schedule thoracentesis first thing in the morning. Orders have been placed. 3. Continue incentive spirometry. 4. Wean steroids. 5. Counseled about the need to discontinue tobacco use. 6. Counseled about the importance of smoking cessation in a patient with a seizure disorder. cc: Gopi Kyle MD
[2019-09-18 08:34] LABS: INR 0.91; PROTIME 12.4 Seconds (11.0-16.0)
[2019-09-18 08:48] LABS: BASO# 0.01 X1000 (0.0-0.2); BASO% 0.1 % (0.0-0.8); EOS# 0.13 X1000 (0.0-0.7); EOS% 0.9 % (0.0-10.0); HEMATOCRIT 37.6 % (42.0-52.0); HEMOGLOBIN 12.5 g/dL (14.0-18.0); IMM GRAN# 0.11 X1000 (0.0-0.04); IMM GRAN% 0.8 % (0.0-0.5); LYMPH# 1.77 X1000 (1.2-3.4); LYMPH% 12.4 % (20.5-51.1); MCHC 33.2 g/dL (33-37); MCV 87.2 FL (81-99); MONO# 1.59 X1000 (0.11-0.59); MONO% 11.2 % (1.7-9.3); MPV 9.8 FL (7.4-10.4); NEUT# 10.63 X1000 (1.4-6.5); NEUT% 74.6 % (42.2-75.2); PLT 371 X1000 (130-400); RBC 4.31 XMIL (4.7-6.1); RDW 13.3 % (11.5-14.5); WBC 14.24 X1000 (4.8-10.8)
[2019-09-18 09:23] LABS: AGAP 15; BUN 13 mg/dL (8-22); CALCIUM 9.4 mg/dL (8.8-10.2); CHLORIDE 103 mmol/L (98-107); COSMO 281; CREATININE 0.9 mg/dL (0.7-1.2); ESTIMATED GFR > 60; GLUCOSE 91 mg/dL (70-104); POTASSIUM 4.3 mmol/L (3.5-5.1); SODIUM 141 mmol/L (136-145); TCO2 23 mmol/L (25-35)
[2019-09-18] MEDS: NICODERM PATCH TD SCH (10:02)
[2019-09-18] MEDS: VANCOMYCIN 2,000 MG in NS 500 ML IV SCH ×2 (10:02→21:17)
[2019-09-18] MEDS: TESSALON PO SCH ×3 (10:03→21:18)
[2019-09-18] MEDS: TRILEPTAL PO SCH (10:03)
[2019-09-18] MEDS: LAMICTAL PO SCH ×2 (10:03→21:17)
[2019-09-18] MEDS: TOPAMAX PO SCH ×2 (10:03→21:17)
[2019-09-18] MEDS: CELEXA PO SCH (10:04)
[2019-09-18] MEDS: MORPHINE IV PRN ×3 (10:09→21:41)
--- NOTE | 2019-09-18 10:41 | PROGRESS NOTE ---
DATE: 09/18/2019 SUBJECTIVE: Patient reports breathing a little better. Denies any fever or chills. OBJECTIVE: Vital Signs: Temperature 97.9 degrees, heart rate 16 respiratory rate 18, blood pressure 119/66, O2 saturation 100% on 6 L nasal cannula. General: This is a 24-year-old male, lying in bed, in no acute distress. Cardiovascular: S1, S2 heard. No murmurs, gallops, or rubs. Regular rate and rhythm. Respiratory: Decreased breath sounds in the right base. Patient not using any accessory muscles or having work of breathing. Abdomen: Soft, nontender to palpation. Bowel sounds present. No organomegaly. Extremities: No clubbing, cyanosis, or edema. Peripheral pulses present in both legs. Neurological: Patient is alert and oriented x3. Moves 4 extremities. LABORATORY DATA: White cell count 14.24, hemoglobin 12.5, hematocrit 37.6, platelets 371,000. BMP unremarkable. ASSESSMENT AND PLAN: 1. Acute respiratory failure secondary to right lower lobe pneumonia. The patient was admitted basically for this condition. Because his white count was elevated, we decided to start broad- spectrum antibiotics and do a CT of the chest without contrast which basically showed pneumonia and a loculated pleural effusion. So at this point, we have consulted Dr. Kyle from Pulmonary. They are planning to do a thoracentesis. He mentioned that we found out that he has empyema and we may need thoracoscopy or thoracotomy. In any case, we will continue with strong antibiotics, in this case vancomycin and cefepime. We will continue with the same management. 2. Tobacco abuse. Patient advised to stop smoking. 3. Ethanol abuse. Aware. 4. Disposition. Following lead from [facility]. cc: MD HARESH Moncada
--- NOTE | 2019-09-18 15:12 | Diag Imaging Result Doc PS360 ---
EXAM: CHEST-2 VIEWS 09/18/2019 HISTORY: INSPIRATION /EXPIRATION TECHNIQUE: Inspiratory expiratory chest upright AP COMMENT: There is increased pleural fluid and basilar atelectasis on the right compared to the previous study of 09/15/2019. There is no evidence of pneumothorax. IMPRESSION: No evidence of pneumothorax. Electronically signed by Jaun Meadows 09/18/2019 3:09 PM
[2019-09-18 16:45] LABS: BODY FLUID SOURCE PLEURAL FLUID; PH BODY FLUID 6; SPECIMEN PLEURAL FLUID; WBC BF 396 /cumm
[2019-09-18 16:46] LABS: MONOS 7 %; POLYS 93 %
[2019-09-18 17:13] LABS: AMYLASE BODY FLUID 30 U/L; GLUCOSE BODY FLUID 38 mg/dL; LDH BODY FLUID 1082 U/L; TOTAL PROT BODY FLUID 5.1 g/dL
[2019-09-19] MEDS: DUONEB (A & A) INH SCH ×6 (02:55→23:20)
--- NOTE | 2019-09-19 04:00 | PULMONOLOGY PROGRESS NOTE ---
DATE: 09/18/2019 SUBJECTIVE: The patient is awake and alert. He reports he felt better after the thoracentesis, but by description only 30 mL was removed. OBJECTIVE: Vital Signs: The patient has been afebrile for the last 24 hours. Blood pressure 120/70, heart rate 116, respiratory rate 14, and oxygen saturation 96%. HEENT: Pupils are equal and reactive. Oropharynx appears clear. Neck: Supple. Respiratory: Chest reveals diminished breath sounds in the right base. Cardiovascular: S1-S2. Abdomen: Soft. Extremities: Without edema. LABORATORIES: Pleural fluid is exudative with a pH of 7.1, and an LDH of 1082. It does not represent gross empyema with a white blood count of only 396. The Gram stain revealed 1+ white blood cells, but no evidence of bacteria. Cultures are pending. IMPRESSION: A 24-year-old with pneumonia and a parapneumonic effusion. This appears complicated and cannot be easily drained with a chest tube. RECOMMENDATIONS: 1. Continue incentive spirometry. 2. Continue antibiotics. 3. Follow up cultures. cc: Gopi Kyle MD
[2019-09-19] MEDS: MAXIPIME 1 GM in NS 50 ML IV SCH ×2 (05:10→17:25)
[2019-09-19] MEDS: NS 1,000 ML IV SCH ×2 (05:16)
[2019-09-19 07:38] LABS: BASO# 0.04 X1000 (0.0-0.2); BASO% 0.4 % (0.0-0.8); EOS# 0.18 X1000 (0.0-0.7); EOS% 1.6 % (0.0-10.0); HEMATOCRIT 37.6 % (42.0-52.0); HEMOGLOBIN 12.4 g/dL (14.0-18.0); IMM GRAN# 0.18 X1000 (0.0-0.04); IMM GRAN% 1.6 % (0.0-0.5); LYMPH# 2.08 X1000 (1.2-3.4); LYMPH% 18.7 % (20.5-51.1); MCH 28.7 PG (27-31); MONO% 10.8 % (1.7-9.3); MPV 9.2 FL (7.4-10.4); NEUT# 7.43 X1000 (1.4-6.5); NEUT% 66.9 % (42.2-75.2); PLT 374 X1000 (130-400); RBC 4.32 XMIL (4.7-6.1); RDW 13.3 % (11.5-14.5); WBC 11.11 X1000 (4.8-10.8)
[2019-09-19 08:06] LABS: AGAP 13; BUN 17 mg/dL (8-22); CHLORIDE 100 mmol/L (98-107); COSMO 273; CREATININE 0.9 mg/dL (0.7-1.2); ESTIMATED GFR > 60; GLUCOSE 89 mg/dL (70-104); SODIUM 136 mmol/L (136-145); TCO2 23 mmol/L (25-35)
[2019-09-19] MEDS: TOPAMAX PO SCH ×2 (09:41→20:58)
[2019-09-19] MEDS: TRILEPTAL PO SCH (09:41)
[2019-09-19] MEDS: CELEXA PO SCH (09:41)
[2019-09-19] MEDS: LAMICTAL PO SCH ×2 (09:41→20:58)
[2019-09-19] MEDS: VANCOMYCIN 2,000 MG in NS 500 ML IV SCH ×2 (09:41→20:59)
[2019-09-19] MEDS: NICODERM PATCH TD SCH (09:41)
[2019-09-19] MEDS: TESSALON PO SCH ×3 (09:42→20:58)
[2019-09-19] MEDS: MORPHINE IV PRN ×3 (13:43→20:59)
--- NOTE | 2019-09-19 20:43 | PROGRESS NOTE ---
DATE: 09/19/2019 INTERVAL HISTORY: No acute events overnight. SUBJECTIVE: Mr. Javed is feeling better. Denies any new complaints. He is still complaining of some right-sided chest pain when he coughs. I discussed with him about exam findings, pneumonia, parapneumonic effusion and I answered all of his questions. VITALS: Temperature 98.1 degrees, pulse 109, respiratory 18, blood pressure 106/66, saturating 91% on room air. PHYSICAL EXAMINATION: General: Not in acute distress. HEENT: Oral cavity is moist. Lungs: He had decreased air entry with inspiratory crackles right infrascapular region. Adequate air entry on left hemithorax. Cardiovascular: S1, S2 normal. No murmur. Abdomen: Soft nontender. No chest wall tenderness. Extremity: No lower extremity edema. Neurologic: He is alert and oriented x3. LABS: Suggestive of improvement in leukocytosis to 11,000, hemoglobin is 12.4. Electrolytes are within normal range. No positive microbiology culture data. ASSESSMENT AND PLAN: 1. Acute hypoxic respiratory failure due to right lower lobe pneumonia. Continue oxygen through nasal cannula as tolerated. 2. Right lower lobe pneumonia with a loculated parapneumonic effusion of exudative variety. Continue intravenous vancomycin and intravenous cefepime. Culture data have been unremarkable. Appreciate Pulmonology recommendation. I will also keep him on inhaled bronchodilators. 3. History of alcohol abuse and tobacco abuse. He was counseled about cessation of both substances. Nicotine patch has been prescribed. He does not demonstrate any signs of alcohol withdrawal. OTHERS: Continue morphine as needed for pain, benzonatate for cough, citalopram for anxiety. Continue lamotrigine, topiramate, and oxcarbazepine for history of seizures. DISPOSITION: Continue to monitor the patient inside the hospital as we follow up with chest x-ray tomorrow. Plan of care discussed with him. His questions have been answered. cc: Bradford Banks MD
[2019-09-19] MEDS: BENADRYL IV PRN (20:58)
[2019-09-19] MEDS: LIDODERM TOP SCH (22:00)
--- NOTE | 2019-09-19 22:46 | PULMONOLOGY PROGRESS NOTE ---
DATE: 09/19/2019 SUBJECTIVE: The patient is lying in bed. He reports he did get out of bed earlier today. He has not been ambulating in the hallway. He does report pain with deep inspiration. He has not been using his incentive spirometry as instructed. OBJECTIVE: The patient has been afebrile for the last 24 hours. Blood pressure 111/58, heart rate 96, respiratory rate 18, oxygen saturation 97% on 2 L per nasal cannula.HEENT: Pupils are equal and reactive. Oropharynx appears clear. Neck: Supple. Chest: Diminished breath sounds in right base. Cardiac: S1, S2. Abdomen: Soft. Extremities: Without edema. IMPRESSION: A 24-year-old with pneumonia and parapneumonic effusion. Pleural effusion is exudative, but Gram stain and cultures are negative. PLAN: 1. Continue current antibiotic regimen. His white blood count is decreasing. 2. Encourage patient to perform incentive spirometry. 3. Follow up chest x-ray tomorrow. cc: Gopi Kyle MD
[2019-09-20] MEDS: DUONEB (A & A) INH SCH ×3 (03:20→11:23)
[2019-09-20] MEDS: MAXIPIME 1 GM in NS 50 ML IV SCH ×2 (04:13→16:40)
--- NOTE | 2019-09-20 07:32 | Diag Imaging Result Doc PS360 ---
EXAM: CHEST-2 VIEWS INDICATION: abnormal exam TECHNIQUE: 2 views COMPARISON: 09/08/2019 FINDINGS: The right pleural fluid collection has increased during the interval. Right basilar atelectasis is approximately stable. Otherwise, no new consolidation is identified. Cardiac silhouette is stable. IMPRESSION: Increased right pleural effusion. Electronically signed by Jaden Sam 09/20/2019 7:29 AM
[2019-09-20] MEDS: MORPHINE IV PRN ×3 (07:35→20:55)
[2019-09-20 08:32] LABS: BASO# 0.06 X1000 (0.0-0.2); BASO% 0.6 % (0.0-0.8); EOS# 0.22 X1000 (0.0-0.7); EOS% 2.1 % (0.0-10.0); HEMATOCRIT 40.7 % (42.0-52.0); HEMOGLOBIN 13.6 g/dL (14.0-18.0); IMM GRAN% 2.9 % (0.0-0.5); LYMPH# 1.87 X1000 (1.2-3.4); LYMPH% 18.2 % (20.5-51.1); MCHC 33.4 g/dL (33-37); MCV 86.8 FL (81-99); MONO# 1.36 X1000 (0.11-0.59); MONO% 13.2 % (1.7-9.3); MPV 9.4 FL (7.4-10.4); NEUT# 6.48 X1000 (1.4-6.5); PLT 411 X1000 (130-400); RBC 4.69 XMIL (4.7-6.1); RDW 13.2 % (11.5-14.5); WBC 10.29 X1000 (4.8-10.8)
[2019-09-20 08:53] LABS: AGAP 12; BUN 14 mg/dL (8-22); CALCIUM 8.9 mg/dL (8.8-10.2); CHLORIDE 98 mmol/L (98-107); COSMO 268; ESTIMATED GFR > 60; GLUCOSE 91 mg/dL (70-104); POTASSIUM 3.8 mmol/L (3.5-5.1); SODIUM 134 mmol/L (136-145); TCO2 24 mmol/L (25-35)
[2019-09-20] MEDS: LAMICTAL PO SCH ×2 (09:41→20:08)
[2019-09-20] MEDS: VANCOMYCIN 2,000 MG in NS 500 ML IV SCH ×2 (09:41→23:55)
[2019-09-20] MEDS: TOPAMAX PO SCH ×2 (09:41→20:08)
[2019-09-20] MEDS: TESSALON PO SCH ×3 (09:41→20:08)
[2019-09-20] MEDS: TRILEPTAL PO SCH (09:41)
[2019-09-20] MEDS: CELEXA PO SCH (09:41)
[2019-09-20] MEDS: LIDODERM TOP SCH (09:49)
[2019-09-20] MEDS: NICODERM PATCH TD SCH (09:50)
--- NOTE | 2019-09-20 17:43 | PROGRESS NOTE ---
DATE: 09/20/2019 INTERVAL HISTORY: No acute events overnight. SUBJECTIVE: Mr. Javed is feeling fine. He states on physical exertion he does become short of breath, currently breathing well on room air and he is getting inhaled bronchodilators. VITAL SIGNS: Temperature of 97.4 degrees, pulse 101, respiratory rate 16, blood pressure 130/78. Saturating 92% on room air. PHYSICAL EXAMINATION: General: Not in acute distress. HEENT: Oral cavity is moist. Lungs: Air entry bilaterally equal. No wheeze, rhonchi. He does have decreased air entry with inspiratory crackles especially in right infrascapular region. Mild crackles in left infrascapular region. Cardiovascular: S1, S2 normal. Not tachycardic. No murmur or gallop. Abdomen: Soft, nontender. No lower extremity edema. He is alert and oriented x3. LABORATORY DATA: Suggestive of resolution of leukocytosis with 10,000. Hemoglobin 13.6, platelet 411,000. BUN is 14, creatinine 1. No new microbiological data. IMAGING: Suggests persistent right pleural effusion. ASSESSMENT AND PLAN: 1. Acute hypoxic respiratory failure due to right lower lobe pneumonia and complicated right parapneumonic effusion with loculation. Continue oxygen as needed to maintain saturation more than 92%, intravenous vancomycin and cefepime and inhaled bronchodilators as needed. The patient was advised about physical activity and an incentive spirometry. 2. History of alcohol and tobacco abuse. He was counseled about cessation of these substances. Continue nicotine patch. He does not have any alcohol withdrawal symptoms. 3. Right-sided chest pain due to right lower lobe pneumonia and parapneumonic effusion. Continue intravenous morphine as needed, citalopram from anxiety. 4. History of seizure. Continue home lamotrigine topiramate and oxcarbazepine. DISPOSITION: Monitor patient inside the hospital as we further monitor his chest x-ray serially as needed. I will discontinue telemetry and patient was encouraged to have physical activity. He is in agreement. cc: MD HARESH Akins
[2019-09-20] MEDS: DUONEB (A & A) INH PRN (21:26)
--- NOTE | 2019-09-20 22:57 | PULMONOLOGY PROGRESS NOTE ---
DATE: 09/20/2019 SUBJECTIVE: The patient reports his sputum production has nearly resolved. His chest pain has improved. He has started ambulating in the hallways. OBJECTIVE: Vital Signs: The patient has been afebrile for the last 24 hours. Blood pressure 130/78, heart rate 101 respiratory rate 16, oxygen saturation 92% on room air. HEENT: Pupils are equal and reactive. Oropharynx appears clear. Neck: Is supple. Chest: Reveals diminished breath sounds right base. Cardiac exam: S1-S2. Abdomen: Is soft. Extremities: Without edema. LABORATORIES: Pleural cultures are negative. White blood count is now normal at 10.29, hemoglobin 13.6, platelet count 411,000. Chest x-ray is without significant change. The radiologist indicates more fluid. The right hilar opacity appears to be less prominent. IMPRESSION: A 24-year-old with 1. Pneumonia. 2. Parapneumonic effusion. 3. Pleurisy. 4. Nicotine addiction with ongoing tobacco use at time of admission. PLAN: 1. Continue current antibiotic regimen. 2. Continue bronchial hygiene. 3. Encourage the patient to ambulate. 4. Consider followup chest x-ray on Tuesday. If he continues to improve, he might be a candidate for discharge. 5. His cultures of the pleural fluid is negative. The only concerning feature of the chemistries on the fluid was a reduced pH. cc: Gopi Kyle MD
[2019-09-21] MEDS: MORPHINE IV PRN ×5 (01:09→20:22)
[2019-09-21] MEDS: MAXIPIME 1 GM in NS 50 ML IV SCH ×2 (06:10→16:44)
[2019-09-21 08:52] LABS: AGAP 14; BUN 12 mg/dL (8-22); CALCIUM 9.5 mg/dL (8.8-10.2); CHLORIDE 98 mmol/L (98-107); COSMO 269; ESTIMATED GFR > 60; GLUCOSE 91 mg/dL (70-104); POTASSIUM 4.5 mmol/L (3.5-5.1); SODIUM 135 mmol/L (136-145); TCO2 23 mmol/L (25-35)
[2019-09-21] MEDS: VANCOMYCIN 2,000 MG in NS 500 ML IV SCH ×2 (09:18→22:15)
[2019-09-21] MEDS: TOPAMAX PO SCH ×2 (09:19→20:22)
[2019-09-21] MEDS: TESSALON PO SCH ×3 (09:19→20:22)
[2019-09-21] MEDS: TRILEPTAL PO SCH (09:19)
[2019-09-21] MEDS: NICODERM PATCH TD SCH (09:19)
[2019-09-21] MEDS: LAMICTAL PO SCH ×2 (09:19→20:22)
[2019-09-21] MEDS: CELEXA PO SCH (09:20)
[2019-09-21] MEDS: LIDODERM TOP SCH (09:21)
[2019-09-21] MEDS ORDERED: DULCOLAX PO PRN (13:14)
[2019-09-21] MEDS ORDERED: DULCOLAX PR PRN (13:18)
[2019-09-21] MEDS: MILK OF MAGNESIA PO PRN ×2 (13:25→16:50)
[2019-09-21] MEDS: MIRALAX PO SCH (13:25)
--- NOTE | 2019-09-21 14:23 | PROGRESS NOTE ---
DATE: 09/21/2019 SUBJECTIVE: Mr. Javed has no primary care physician and was admitted on 09/15/2019, came in with fever, chills, body aches, shortness of breath, productive cough after being diagnosed with pneumonia about 5 days prior to admission. He had continued on antibiotics, no improvement. A 24- year-old male presented to [facility], diagnosed with pneumonia 5 days prior to that, a [facility], started on p.o. antibiotics, and taking those antibiotics prescribed and continue to have fever, chills, body aches, shortness of breath. When he arrived to the emergency room, his O2 saturations were 91% on room air, placed on O2 at 2 L when he was saturating above 90%. His pulse was 121, respirations 27. Chest x- ray showed right lower lobe infiltrate and atelectasis. His past history is depression, seizures. He lives in [place]. So admitted with sepsis, right lower lobe pneumonia, failed outpatient treatment, leukocytosis., tobacco use, and ethanol abuse. A CT of his chest on 09/17 showed partially loculated moderate-to- large size right pleural effusion with significant atelectasis including complete collapse of the right lower lobe, likely superimposed pneumonia, trace left pleural effusion, minimal dependent atelectasis on the left. The patient says he feels like he is improving. He is still not where he needs to be. OBJECTIVE: Vital signs: Remains afebrile, temperature 98.6 degrees, pulse 98, respirations 16, blood pressure 123/69. Eyes: Pupils are equal and round. Lungs: Clear in all lung brown. Cardiovascular exam: Regular rhythm and rate without murmur or S3. Abdomen: Soft. Skin: Warm and dry urine. Urine out 1900 mL. ASSESSMENT AND PLAN: 1. Pneumonia and parapneumonic effusion with some pleuritic pain is improving. Continue present antibiotics and bronchodilators. 2. Nicotine addiction. He has got a nicotine patch. 3. History of alcohol abuse so clinically continue his present regimen. He is getting albuterol ipratropium breathing treatments q.6 hours, Tessalon Perles 100 mg p.o. t.i.d., Celexa 20 mg daily, Lamictal 100 mg p.o. b.i.d., lidocaine patch 5% topically every day, cefepime 1 g IV q.12 hours, nicotine patch 21 mg daily, [id number] mg p.o. daily, MiraLAX 17 g daily,Topamax 100 mg p.o. b.i.d., vancomycin 2 g IV q.12. LABORATORY: Review of lab unremarkable. It seems like we are making improvement, hopefully can be discharged soon. cc: Taco Suresh MD MTDD
--- NOTE | 2019-09-21 18:49 | PROVIDER PROGRESS NOTE ---
Progress Note Dr. Aguero Progress Note/Pulmonary and or critical care Subjective: The patient is lying in bed on room air with no acute distress noted. He is playing his cellphone at this time. He complains of slowly improving pleurisy and sore throat with cough. He still has chest pressure and mild SOB with activities. Objective: Vital Signs: T 98.6, NJ 97, RR 16, BP 116/66 and SaO2 94% on room air. Physical Examination: General: Lying in bed with no acute distress noted. HEENT: Normocephalic. Trachea midline. Pupils equal round reactive to light. Chest: Even and unlabored. Symmetrical excursion. Diminished breathing sounds in the right base. CVS: Regular rate and rhythm with S1 and S2 appreciated. Abdomen: Soft. Nontender. Nondistended. Normoactive bowel sounds in all 4 quadrants noted. Extremities: No pedal edema. No cyanosis. No clubbing. Neuro: Awake and alert. Speech fluent. Follow simple commands. Labs and Radiology: Laboratory Results 09/21/19 07:30 Sodium 135 L Potassium 4.5 D Chloride 98 Carbon Dioxide 23 L Anion Gap 14 BUN 12 Creatinine 1.0 Estimated GFR/1.73 m2 > 60 BUN/Creatinine Ratio 12 Glucose 91 Calculated Osmolality 269 Calcium 9.5 Assessment: Pneumonia Parapneumonic effusion, loculated. Thoracentesis on 09/18/19 with only 30 ml of fluid aspirated. The chemistries of the fluid showed a reduced pH. Pleurisy Nicotine addition with ongoing tobacco use at time of admission. Plan: Antibiotic (Cefepime and vancomycin). Bronchodilators. Tobacco cessation education. We encourage patient to ambulate and perform incentive spirometer routinely.
[2019-09-21] MEDS: DUONEB (A & A) INH PRN (22:11)
[2019-09-22] MEDS: MORPHINE IV PRN (00:23)
[2019-09-22] MEDS: DUONEB (A & A) INH PRN ×2 (03:49→10:24)
[2019-09-22] MEDS: MAXIPIME 1 GM in NS 50 ML IV SCH (04:03)
[2019-09-22 08:03] LABS: AGAP 13; BUN 15 mg/dL (8-22); CALCIUM 9.6 mg/dL (8.8-10.2); CHLORIDE 96 mmol/L (98-107); COSMO 267; ESTIMATED GFR > 60; GLUCOSE 88 mg/dL (70-104); POTASSIUM 4.4 mmol/L (3.5-5.1); SODIUM 133 mmol/L (136-145); TCO2 24 mmol/L (25-35)
[2019-09-22] MEDS: TESSALON PO SCH (09:58)
[2019-09-22] MEDS: NICODERM PATCH TD SCH (09:58)
[2019-09-22] MEDS: LAMICTAL PO SCH (09:58)
[2019-09-22] MEDS: CELEXA PO SCH (09:58)
[2019-09-22] MEDS: TOPAMAX PO SCH (09:58)
[2019-09-22] MEDS: TRILEPTAL PO SCH (10:04)
[2019-09-22] MEDS: LIDODERM TOP SCH (10:06)
[2019-09-22] MEDS: VANCOMYCIN 2,000 MG in NS 500 ML IV SCH (10:06)
[2019-09-22] MEDS: MIRALAX PO SCH (10:06)
[2019-09-22 12:57] VITALS: BP 128/62
--- NOTE | 2019-09-22 14:58 | DISCHARGE SUMMARY ---
ADMISSION DATE: 09/15/2019 DISCHARGE DATE: 09/22/2019 A 24-year-old with no primary care physician. He came in with a complaint of fever, chills, body aches, shortness of breath, productive cough after being diagnosed with pneumonia about 5 days before admission. He was continued on antibiotics, but no improvement. He came to [facility], diagnosed with pneumonia about 5 days ago at [facility], placed on p.o. antibiotics and taking those antibiotics as prescribed. Continuous fever, chills, aches, and shortness of breath. EMS arrived and his sats were 91% on room air. Placed him on O2 at 2 L per nasal cannula and gave him some breathing treatments on route. He arrived, was saturating about 96% on room air. Pulse was 120, respirations 27, white count was [id number]. It is noted that he was taking some prednisone. His chest x-ray showed right lower lobe infiltrate, atelectasis, so admitted for pneumonia. He has a history of depression, seizures, was continued on his seizure medications and he was given incentive spirometry, put on Rocephin 1 gram q.24 hours and azithromycin 500 mg IV q.24 hours, 1st dose given in the emergency room. He was put on a nicotine patch. Encouraged to pursue smoking cessation. His chest CT on 09/17 showed a partially loculated moderate to large scale right pleural effusion with significant atelectasis including complete collapse of the right lower lobe, likely superimposed pneumonia. Trace left pleural effusion. Minimal dependent atelectasis on the left. Pulmonary was asked to see. Dr. Kyle evaluated. He had a loculated pleural effusion, hypoxemic respiratory failure in the face of pneumonia, pleuritic chest pain with underlying history of tobacco and alcohol use, history of seizure disorder. The chest x-ray repeated on 09/20, increase in right pleural effusion. [place] this is probably a parapneumonic effusion, clinically improved and felt he could go home. Pulmonary said he could go home as well. We will discharge him home. He was on cefepime. His micro, no strep organisms. No growth from blood cultures. Influenza screen from 09/15 was negative for A and B, so I will discharge him home and I will keep him on his seizure medications, which is Celexa 20 mg a day, Lamictal 100 mg b.i.d., Trileptal 2.5 or 2 and half tablets daily, carbamazepine and then he was taking prednisone 3 tablets a day, Topamax 100 mg b.i.d. and I will put him on Levaquin 750 mg daily for another 7 days. cc: Taco Suresh MD
--- NOTE | 2019-09-22 19:03 | PROVIDER PROGRESS NOTE ---
Progress Note Dr. Aguero Progress Note/Pulmonary and or critical care Subjective: The patient is lying in bed on room air with no acute distress noted. He appears sleeping, but easily arousable. He has no cough. He still has some mild SOB with activities, but the pleurisy has been improved. He feels like he is ready to go home. Objective: Vital Signs: T 98.1, NH 113, RR 20, BP 128/62 and SaO2 96% on room air. Physical Examination: General: Lying in bed with no acute distress noted. HEENT: Normocephalic. Trachea midline. Pupils equal round reactive to light. Chest: Even and unlabored. Symmetrical excursion. Improved air entry. CVS: Regular rate and rhythm with S1 and S2 appreciated. Abdomen: Soft. Nontender. Nondistended. Normoactive bowel sounds in all 4 quadrants noted. Extremities: No pedal edema. No cyanosis. No clubbing. Neuro: Awake and alert. Speech fluent. Follow simple commands. Labs and Radiology: Laboratory Results 09/21/19 09/22/19 09/22/19 20:39 07:19 07:19 Sodium 133 L Potassium 4.4 Chloride 96 L Carbon Dioxide 24 L Anion Gap 13 BUN 15 Creatinine 1.0 Estimated GFR/1.73 m2 > 60 BUN/Creatinine Ratio 15 Glucose 88 Calculated Osmolality 267 Calcium 9.6 Zeq-O-Tammkrqouxt Pept < 5 L Random Vancomycin 14.70 Assessment: Pneumonia Parapneumonic effusion, loculated. Thoracentesis on 09/18/19 with only 30 ml of fluid aspirated. The chemistries of the fluid showed a reduced pH. Pleurisy Nicotine addition with ongoing tobacco use at time of admission. Plan: Antibiotic (Cefepime and vancomycin). Bronchodilators. Tobacco cessation education. Patient states he still need think about it. We encourage patient to ambulate and perform incentive spirometer routinely. 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
--- NOTE | 2019-09-24 12:59 | Diag Imaging Result Doc PS360 ---
US THORACENTESIS W/IMAGE GUIDE - 09/18/2019 INDICATION: effusion, possible empyema TECHNIQUE: Informed consent was obtained. The area was prepped and draped in sterile fashion. Skin was anesthetized. COMPARISON: None FINDINGS: 20 mL of fluid was removed from the small right pleural effusion. IMPRESSION: Successful and uncomplicated small volume thoracentesis by Dr. Meadows. Electronically signed by Obdulio Parker 09/24/2019 12:57 PM
== END 2019-09-22 16:02 | disposition home or self-care (01) | DRG 193 ==
LOC: SUPCPDRO → ED 07:31 → EDIPHOLD 10:25 → SUATTDRO 10:25 → 3N 13:18
PROVIDERS: ATTEND Emergency Medicine